=== PATIENT | male | born 1985 | race Two or more races ===

== ENCOUNTER 2022-12-24 16:53 | Emergency (ER) | payer OTHER ==
[~2022-12-24] VITALS: Ht 190.5 cm; Wt 109.1 kg
[2022-12-24] MEDS ORDERED: TRAZ-257 PO (17:09)
[2022-12-24 17:16] VITALS: BP 120/67; PULSE 77; RESP 20; TEMP 98.3
== END 2022-12-24 18:12 | disposition home or self-care (01) ==
LOC: EMS 16:55
DX: K64.4 Residual hemorrhoidal skin tags (principal); F20.9 Schizophrenia, unspecified
CPT/HCPCS: 99283; Z7502